=== PATIENT | male | born 1970 | race Caucasian/White ===

== ENCOUNTER 2020-06-28 16:43 | Emergency (ER) | payer OTHER, SELFPAY ==
--- NOTE | ~2020-06-28 | XR_ITS ---
EXAMINATION: XR lumbar spine 2-3V EXAM DATE: 06/28/2020 17:57 INDICATION: Work Injury X3wks Ago,Pain In Low Back To Hips Legs. TECHNIQUE: Lumber spine frontal, lateral, lateral L5-S1 projections for interpretation. There is no prior study for comparison. FINDINGS: There is mild disc disease at L4-5 and L5-S1. There is mild to moderate lumbar facet arthr opathy. The vertebral bodies are aligned in the AP dimension. There are no acute fractures identifi ed. Sacrum, sacroiliac joints, sacral arcuate lines are intact. Paraspinal soft tissue is unremarkabl e. IMPRESSION: No acute findings. Reviewed, dictated and finalized at location A. ERS COMPENSATION COORDINATOR IMPRESSION: No acute findings.
[2020-06-28 16:49] VITALS: BP 148/70; PULSE 100; RESP 18; TEMP 36.8; O2SAT 100
[2020-06-28] MEDS: ONDANSETRON HCL ODT 4 MG TABLET PO (17:55)
[2020-06-28] MEDS: oxyCODONE/ACETAMINOPHEN (*CRX) 5-325 MG TABLET 1 TABLET PO (17:55)
--- NOTE | 2020-06-28 18:05 | ED.BACK ---
HPI - Back Pain/Injury General Chief Complaint: Back Pain/Injury Stated Complaint: back injury Time Seen by Provider: 06/28/20 17:16 Source: patient Mode of arrival: ambulatory Limitations: no limitations History of Present Illness HPI Narrative: This patient is a 49 year old male who presents for evaluation of low back pain. PAtient states he injured his back 3 weeks ago while working. 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 He reports his pain is located intermittently on right and left above his buttock. He states the pain intermittently radiates to his legs. He has been taking tylenol for his pain. He was feeling better but his pain worsen when was in the shower trying to dry off. He denies urinary hesitancy or retention. He denies leg weakness, numbness or tingling. He denies abdominal pain. His pain is worse with movement and lifting his legs. He was evaluated at [facility] today and he was given a dose of toradol. He was referred to ER for an MRI. Related Data Allergies Allergy/AdvReac Type Severity Reaction Status Date / Time No Known Allergies Allergy Verified 06/28/20 17:53 Review of Systems Review of Systems: All systems reviewed & are unremarkable except as noted in HPI and below Gastrointestinal: Gastrointestinal: Denies abdominal pain, Denies diarrhea, Denies nausea and Denies vomiting Genitourinary: Genitourinary: Denies hematuria, Denies oliguria and Denies penile discharge Musculoskeletal: Musculoskeletal: Reports back pain Neurologic: Denies focal weakness, Denies numbness and Denies weakness [facility] Past Medical History Medical History (Updated 06/28/20 @ 18:59 by Niki Salcedo MD) Kidney stone Surgical History Surgical History (Updated 06/28/20 @ 21:21 by Niki Salcedo MD) No pertinent past surgical history Social History Social History (Updated 06/28/20 @ 18:10 by Niki Salcedo MD) Smoking packs per day: 1 Smoking cigarettes per day: 20.0 Smoking status: Current every day smoker Alcohol intake: current Exam Const: General: no acute distress and alert Orientation/consciousness: patient oriented x3 HENMT: Head: normocephalic and atraumatic Eyes: EOM: EOMs intact bilaterally Resp: Effort & Inspection: normal respiratory effort GI: GI Palp: Yes Soft to palpation, No Tenderness to palpation present (GI) and No Guarding due to palpation present (GI) Auscultation: normal bowel sounds Back/Spine/Pelvis: Thoracic/Lumbar Spine: No straight leg raise positive and other (pain with bending and lifting legs. ) Pelvis: no pain with anterior-posterior compression Skin: General skin exam: normal color Rashes: no rashes Neuro: General: patient oriented x3 and moves all extremities Course Reevaluation(s) Reevaluation #1: He reports his pain has improved. I have discussed with patient xray and discharge plan and follow up. He does not have any neurodeficits or signs of cauda equina. Patient was given precautions. I explained MRI is not necessary at this time. Date: 06/28/20 Time: 18:58 Vital Signs Vital signs: Vital Signs Temperature 98.2 F 06/28/20 16:49 Pulse Rate 100 06/28/20 16:49 Respiratory Rate 18 06/28/20 16:49 Blood Pressure 148/70 H 06/28/20 16:49 Pulse Oximetry 100 06/28/20 16:49 Temperature 98.2 F 06/28/20 16:49 Pulse Rate 72 06/28/20 19:15 Respiratory Rate 16 06/28/20 19:15 Blood Pressure 137/68 06/28/20 19:15 Pulse Oximetry 97 06/28/20 19:15 MDM - Back Pain/Injury Imaging Data Radiologist's impression: ITS Impressions Lumbar Spine X-Ray 06/28/20 17:59 IMPRESSION: No acute findings. Discharge Plan Discharge Clinical Impression: Lumbar radiculopathy Patient Disposition: Home, Self-Care Condition: Stable Instructions: Acute Low Back Pain (ED), Lumbar Radiculopathy (ED), Lower Back Exercises (ED) Additional In
[2020-06-28 19:15] VITALS: BP 137/68; PULSE 72; RESP 16; O2SAT 97
== END 2020-06-28 19:15 | disposition home or self-care (01) ==
PROVIDERS: Emergency Provider General Practice; PCP Family Medicine Adolescent Medicine
DX: M54.16 Radiculopathy, lumbar region (principal); Z87.442 Personal history of urinary calculi
CPT/HCPCS: 72100; 99283; A9270

== ENCOUNTER 2020-08-15 14:03 | Emergency (ER) | payer OTHER, SELFPAY ==
--- NOTE | ~2020-08-15 | XR_ITS ---
XR chest 2V DATE: 08/15/2020 16:22 INDICATION: Palpitations, tachycardia TECHNIQUE: PA and lateral views COMPARISON: 01/04/2011 2 view chest FINDINGS: Normal heart size. No hilar or mediastinal enlargement. No pulmonary infiltrate or consol idation, pulmonary vascular congestion or pleural effusion or pneumothorax. IMPRESSION: No active cardiopulmonary disease Reviewed, dictated and finalized at location A. OS LEAD
--- NOTE | 2020-08-15 14:06 | ECG_ITS ---
Measurements Intervals [place] Rate: 124 P: 75 VA: 172 QRS: 83 QRSD: 86 T: 2 QT: 310 QTc: 446 Interpretive Statements SINUS TACHYCARDIA VOLTAGE CRITERIA FOR LVH BORDERLINE ST-T WAVE ABNORMALITY- INFERIOR LEADS ABNORMAL ECG Electronically Signed On 08-15-2020 14:19:10 [facility] [employer] by Derrick Leung D.O.
[2020-08-15 14:07] VITALS: BP 146/93; PULSE 130; RESP 20; TEMP 36.6; O2SAT 100
[2020-08-15 15:45] VITALS: BP 139/90; PULSE 118; RESP 20; O2SAT 100
[2020-08-15 16:17] LABS: Basophils Absolute Auto 0.1 K/mm3 (0.0-0.1); Basophils Percent Auto 1.1 % (0.2-1.2); Eosinophils Absolute Auto 0.1 K/mm3 (0-0.3); Eosinophils Percent Auto 1.7 % (0-4.4); Hematocrit 44.7 % (42.0-52.0); Hemoglobin 15.2 g/dL (14.0-18.0); Immature Granulocyte Absolute 0.01 K/mm3 (0.00-0.031); Immature Granulocyte Percent A 0.1 % (0-0.5); Lymphocytes Absolute Auto 2.01 K/mm3 (0.9-3.2); Lymphocytes Percent Auto 28.4 % (18.3-44.2); Mean Corpuscular Hemoglobin 31.2 pg (26-34); Mean Corpuscular Volume 91.8 fl (80-100); Mean Platelet Volume 8.5 fl (7.4-10.4); Monocytes Absolute Auto 0.6 K/mm3 (0.1-0.6); Neutrophils Absolute Auto 4.2 K/mm3 (1.3-6.7); Neutrophils Percent Auto 59.7 % (45.5-73.1); Platelet Count Result 267 k/mm3 (150-375); Red Blood Count 4.87 M/mm3 (4.6-6.20); Red Cell Distribution Width 13.9 % (11.5-14.5); White Blood Count 7.1 K/mm3 (4.5-10.0)
[2020-08-15 16:35] LABS: Anion Gap 7 mmol/L (8-16); Blood Urea Nitrogen 21 mg/dL (9-20); Calcium 9.7 mg/dL (8.4-10.2); Carbon Dioxide 29 mmol/L (22-30); Chloride 105 mmol/L (98-107); Estimated CRCL calculation 94 ml/min; Estimated Glomerular Filt Rate > 60; Glucose 107 mg/dL (75-110); Sodium 141 mmol/L (137-145)
[2020-08-15 16:52] VITALS: BP 131/96; PULSE 97; RESP 17; O2SAT 99
[2020-08-15 17:19] LABS: Amphetamine Screen Urine Negative (Negative); Barbiturate Screen Urine Negative (Negative); Benzodiazepines Screen Urine Negative (Negative); Cannabinoid Screen Urine Negative (Negative); Cocaine Screen Urine Negative (Negative); Methadone Screen Urine Negative (Negative); Opiate Screen Urine Negative (Negative); Phencyclidine Screen Urine Negative (Negative)
[2020-08-15 17:35] VITALS: PULSE 95; RESP 14; O2SAT 98
--- NOTE | 2020-08-15 18:48 | ED.ARRPALP ---
HPI - Arrhythmia/Palpitations General Chief Complaint: Arrhythmia/Palpitations Stated Complaint: Irregular Heart Rate Time Seen by Provider: 08/15/20 15:33 History of Present Illness HPI narrative: Patient is a 49-year-old male who presents ER with elevated heart rate. He has been going to a an urgent care for Workmen's Comp. related to a back injury. They have been noting that his heart rate has been elevated greater than 120 bpm with regularity on these visits. Patient reports this has been a longstanding issue. Occasionally is working he feels like his heart is racing. He has no chest pain or shortness of breath. No weight loss. Denies that he has been evaluated for this in the past. He does have PCP and he has never discussed it with him. Denies any alcohol withdrawal or abuse of drugs. Related Data Allergies Allergy/AdvReac Type Severity Reaction Status Date / Time No Known Allergies Allergy Verified 06/28/20 17:53 Review of Systems Review of Systems: All systems reviewed & are unremarkable except as noted in HPI and below Constitutional: Constitutional: Denies chills, Denies fever(s) and Denies weakness ENT: Denies nasal congestion and Denies sore throat Cardiovascular: Cardiovascular: Denies chest pain, Reports rapid heart rate and Denies radiating jaw, neck or arm pain Respiratory: Respiratory: Denies cough, Denies dyspnea and Denies wheezing PMFSH Past Medical History Medical History (Updated 08/15/20 @ 19:00 by Roque Boyer MD) Kidney stone Surgical History Surgical History (Updated 06/28/20 @ 21:21 by Niki Salcedo MD) No pertinent past surgical history Social History Social History (Updated 06/28/20 @ 18:10 by Niki Salcedo MD) Smoking packs per day: 1 Smoking cigarettes per day: 20.0 Smoking status: Current every day smoker Alcohol intake: current Gender identity (if verbalized by the patient): Male Exam Narrative: Exam Narrative: GENERAL: Well-appearing, well-nourished, and in no acute distress. HEAD: Normocephalic, atraumatic. CHEST: Clear to auscultation. No respiratory distress. HEART: Regular rate and rhythm. Normal peripheral pulses. EXTREMITIES: Normal range of motion. No edema. SKIN: Warm, dry, no rash. NEURO: Alert and oriented x3. PSYCH: Normal mood and affect. Course Course Emergency Course: Unremarkable labs. Heart rate normalized on its own without fluids. Patient may have component of anxiety when he is in the ER or urgent care. Recommend follow-up with PCP for further evaluation. Vital Signs Vital signs: Vital Signs Temperature 97.8 F 08/15/20 14:07 Pulse Rate 130 H 08/15/20 14:07 Respiratory Rate 20 08/15/20 14:07 Blood Pressure 146/93 H 08/15/20 14:07 Pulse Oximetry 100 08/15/20 14:07 Temperature 97.8 F 08/15/20 14:07 Pulse Rate 98 08/15/20 19:22 Respiratory Rate 21 H 08/15/20 19:22 Blood Pressure 132/86 08/15/20 19:22 Pulse Oximetry 97 08/15/20 19:22 MDM - Arrhythmia/Palpitations Lab Data Result diagrams: 08/15/20 16:09 08/15/20 16:09 Labs: Lab Results 08/15/20 08/15/20 08/15/20 Range/Units 16:09 16:09 16:09 WBC 7.1 (4.5-10.0) K/mm3 RBC 4.87 (4.6-6.20) M/mm3 Hgb 15.2 (14.0-18.0) g/dL Hct 44.7 (42.0-52.0) % MCV 91.8 (80-100) fl MCH 31.2 (26-34) pg MCHC 34.0 (32-36) g/dl RDW 13.9 (11.5-14.5) % Plt Count 267 (150-375) k/mm3 MPV 8.5 (7.4-10.4) fl Immature Gran % (Auto) 0.1 (0-0.5) % Neut % (Auto) 59.7 (45.5-73.1) % Lymph % (Auto) 28.4 (18.3-44.2) % [place] % (Auto) 9.0 H (2.6-8.5) % Eos % (Auto) 1.7 (0-4.4) % Baso % (Auto) 1.1 (0.2-1.2) % Lymph # (Auto) 2.01 (0.9-3.2) K/mm3 [place] # (Auto) 0.6 (0.1-0.6) K/mm3 Eos # (Auto) 0.1 (0-0.3) K/mm3 Baso # (Auto) 0.1 (0.0-0.1) K/mm3 Abs Immat Gran (auto) 0.01 (0.00-0.031) K/mm3 Absolute Neuts (auto) 4.2 (1.3-6.7)
[2020-08-15 19:22] VITALS: BP 132/86; PULSE 98; RESP 21; O2SAT 97
== END 2020-08-15 19:23 | disposition home or self-care (01) ==
PROVIDERS: Emergency Provider Emergency Medicine; PCP Family Medicine Adolescent Medicine
DX: R00.2 Palpitations (principal); R00.0 Tachycardia, unspecified; Z87.442 Personal history of urinary calculi; F17.210 Nicotine dependence, cigarettes, uncomplicated; R94.31 Abnormal electrocardiogram [ECG] [EKG]
CPT/HCPCS: 36415; 71046; 80048; 80307; 83735; 84443; 85025; 93005; 99283

== ENCOUNTER 2023-03-25 07:17 | Emergency (ER) | payer BC, SELFPAY ==
--- NOTE | ~2023-03-25 | XR_ITS ---
EXAMINATION: XR elbow RT min 3V DATE: 03/25/2023 08:07 INDICATION: Right elbow pain. Fall. TECHNIQUE: 4 views of right elbow were obtained. COMPARISON: None. FINDINGS: Bone alignment is normal. No fracture. There is mild elbow joint osteoarthritis. No elbow j oint effusion. IMPRESSION: 1. Mild elbow joint osteoarthritis. Reviewed, dictated and finalized at location E.
--- NOTE | ~2023-03-25 | XR_ITS ---
EXAMINATION: XR wrist RT min 3V DATE: 03/25/2023 08:07 INDICATION: Right wrist pain. TECHNIQUE: 4 views of right wrist were obtained. COMPARISON: None. FINDINGS: Bone alignment is normal. No fracture. There is heterotopic ossification distal to ulnar st yloid. There is mild osteoarthritis of triscaphe joint and first carpometacarpal joint. IMPRESSION: 1. Mild polyarticular osteoarthritis. Reviewed, dictated and finalized at location E.
[2023-03-25 07:24] VITALS: BP 128/86; PULSE 91; RESP 14; TEMP 36.2; O2SAT 99
--- NOTE | 2023-03-25 08:16 | ED.UPPEXIN ---
HPI - Extremity Injury (Upper) General Chief Complaint: Extremity Injury, Upper Stated Complaint: fall sat/arm injury Time Seen by Provider: 03/25/23 07:45 Source: patient and RN notes reviewed Mode of arrival: ambulatory Limitations: no limitations History of Present Illness HPI narrative: This is a 52 year old male right hand dominant who presents for evaluation right arm pain. He states he fell on Saturday night while he was drinking alcohol. He thinks he fell on his right forearm trying to catch himself. He reports mild swelling and pain at distal proximal forearm . He has pain with trying to turn his wrist. He has been taking Tylenol for his pain and he has been treating with ice. MD complaint: injury to: forearm Onset (ago): day(s) Related Data Allergies Allergy/AdvReac Type Severity Reaction Status Date / Time No Known Allergies Allergy Verified 03/25/23 07:21 Review of Systems Review of Systems: All systems reviewed & are unremarkable except as noted in HPI and below PMFSH Past Medical History Medical History (Updated 03/25/23 @ 08:22 by Niki Salcedo MD) Hypertension Kidney stone (2009) Pure hypercholesterolemia, unspecified (12/2022) Surgical History Surgical History No pertinent past surgical history Family History Family History (Updated 12/07/21 @ 10:50 by Iqra Aguilera MA) Mother Lung cancer Father Lung cancer Social History Social History Smoking packs per day: 1 Smoking cigarettes per day: 20.0 Years smoked: 15 Smoking pack-years: 15.00 Smoking status: Current every day smoker Tobacco type: cigarettes Second hand tobacco smoke exposure: Yes Alcohol intake: current Drinks per week: 12 Substance use: never Substance use type: does not use Lack of Transportation: No Lack of Food: Never True Current Housing: I Have Housing Concerned About Future Housing: No Difficulty Paying Gas/Electric Bills: No Difficulty Paying for Meds: No Currently Unemployed: No Education: High School Diploma/GED Difficulty w/ Childcare or Family Care: No Living arrangements: with family Occupation/Education: occupation Gender identity (if verbalized by the patient): Male Sexual Orientation (if Verbalized by the Patient): Straight or Heterosexual Spiritual care concerns: No Agree to blood products: Yes Exam Const: General: no acute distress and alert Nutritional Appearance: well nourished Orientation/consciousness: patient oriented x3 HENMT: Head: normal to inspection Eyes: EOM: EOMs intact bilaterally Resp: Effort & Inspection: normal respiratory effort Cardio: Other: strong right radial pulse, palpable Skin: General skin exam: normal color Rashes: no rashes Wounds: no wounds Neuro: General: patient oriented x3, moves all extremities and CN's II-XI intact bilaterally Extrem: Other: mild ttp and swelling dorsal just distal to right elbow, no deformity, no bruising, no erythema; no TTP or swelling to right wrist or right hand Psych: Mental Status: mental status grossly normal Affect: normal affect Attitude: cooperative Course Reevaluation(s) Reevaluation #1: I Discussed with patient that xray was negative for fracture. Treatment with ice and NSAIDS. Date: 03/25/23 Time: 08:20 Vital Signs Vital signs: Vital Signs Temperature 97.1 F L 03/25/23 07:24 Pulse Rate 91 03/25/23 07:24 Respiratory Rate 14 03/25/23 07:24 Blood Pressure 128/86 03/25/23 07:24 Pulse Oximetry 99 03/25/23 07:24 Temperature 97.1 F L 03/25/23 07:24 Pulse Rate 91 03/25/23 07:24 Respiratory Rate 14 03/25/23 07:24 Blood Pressure 128/86 03/25/23 07:24 Pulse Oximetry 99 03/25/23 07:24 MDM - Extremity Injury (Upper) MDM Narrative Medical decision making narrative: imaging ordered. Ibuprofen ordere
[2023-03-25] MEDS: IBUPROFEN 600 MG TABLET PO (08:23)
== END 2023-03-25 08:55 | disposition home or self-care (01) ==
LOC: ANHED 08:38
PROVIDERS: Emergency Provider General Practice; PCP Family Medicine Adolescent Medicine
DX: S50.11XA Contusion of right forearm, initial encounter (principal); F17.210 Nicotine dependence, cigarettes, uncomplicated; I10 Essential (primary) hypertension; Z87.442 Personal history of urinary calculi; E78.5 Hyperlipidemia, unspecified; W19.XXXA Unspecified fall, initial encounter
CPT/HCPCS: 73080; 73110; 99284; A9270

== ENCOUNTER 2023-06-15 09:03 | Emergency (ER) | payer BC, SELFPAY ==
[2023-06-15 09:15] VITALS: BP 119/87; PULSE 104; RESP 16; TEMP 36.7; O2SAT 97
--- NOTE | 2023-06-15 09:40 | ED.SKABFB ---
HPI - Skin/Abscess/Foreign Bdy General Chief complaint: Skin/Abscess/Foreign Body Stated complaint: Rash Time Seen by Provider: 06/15/23 09:40 Source: patient, RN notes reviewed and old records reviewed Mode of arrival: ambulatory Limitations: no limitations History of Present Illness HPI narrative: 52-year-old male presents to the [facility] with a generalized rash since Saturday, 3 days ago. Patient states that his has changed their body soap to a generic version of with the use to use. Broken this rash. No treatment prior to arrival. Has been taking hot showers to help but is making it worse. Denies any chest pain, shortness of breath. No lip or tongue swelling. Treatments prior to arrival: none Related Data Allergies Allergy/AdvReac Type Severity Reaction Status Date / Time No Known Allergies Allergy Verified 06/15/23 09:42 Review of Systems Review of Systems: All systems reviewed & are unremarkable except as noted in HPI and below Constitutional: Constitutional: Reports no additional constitutional complaints Eyes: Eyes: Reports no additional eye complaints ENT: Reports system reviewed and no additional complaints, except as documented Cardiovascular: Cardiovascular: Reports no additional cardiovascular complaints, Denies chest pain and Denies dyspnea Respiratory: Respiratory: Reports no additional respiratory complaints, Denies chest congestion, Denies cough and Denies dyspnea Gastrointestinal: Gastrointestinal: Reports no additional gastrointestinal complaints, Denies abdominal pain, Denies nausea and Denies vomiting Musculoskeletal: Musculoskeletal: Reports no additional musculoskeletal complaints Integumentary/Breasts: Skin/Breast: Reports as per HPI and Reports rash Neurologic: Reports system reviewed and no additional complaints, except as documented Psychiatric: Psychiatric: Reports no additional psychiatric complaints Allergic/Immunologic: Allergic/Immunologic: Reports no additional allergic/immunologic complaints [facility] Past Medical History Medical History Hypertension Kidney stone (2009) Pure hypercholesterolemia, unspecified (12/2022) Surgical History Surgical History No pertinent past surgical history Family History Family History Mother Lung cancer Father Lung cancer Social History Social History Smoking packs per day: 1 Smoking cigarettes per day: 20.0 Years smoked: 15 Smoking pack-years: 15.00 Smoking status: Current every day smoker Tobacco type: cigarettes Second hand tobacco smoke exposure: Yes Alcohol intake: current Drinks per week: 12 Substance use: never Substance use type: does not use Lack of Transportation: No Lack of Food: Never True Current Housing: I Have Housing Concerned About Future Housing: No Difficulty Paying Gas/Electric Bills: No Difficulty Paying for Meds: No Currently Unemployed: No Education: High School Diploma/GED Difficulty w/ Childcare or Family Care: No Living arrangements: with family Occupation/Education: occupation Gender identity (if verbalized by the patient): Male Sexual Orientation (if Verbalized by the Patient): Straight or Heterosexual Spiritual care concerns: No Agree to blood products: Yes Comments At the time of my signature, I reviewed and agree with the nursing past medical, surgical, social, and family history. There is no relevant family history pertinent to the patient complaint. Exam Const: General: cooperative, healthy appearing, comfortable, no acute distress, well developed, alert and well nourished Nutritional Appearance: well nourished Orientation/consciousness: patient oriented x3 Limitations: no limitations HENMT: Head: normal to inspection
== END 2023-06-15 09:54 | disposition home or self-care (01) ==
PROVIDERS: Emergency Provider Nurse Practitioner; PCP Family Medicine Adolescent Medicine
DX: L23.9 Allergic contact dermatitis, unspecified cause (principal); I10 Essential (primary) hypertension; F17.210 Nicotine dependence, cigarettes, uncomplicated
CPT/HCPCS: 99213; G0463

== ENCOUNTER 2024-04-08 15:15 | Emergency (ER) | payer BC, SELFPAY ==
[2024-04-08] VITALS (11 sets, daily range): BP systolic 124–139; BP diastolic 80–84; PULSE 79–96; RESP 10–20; TEMP 36.6–37.1; O2SAT 97–100
--- NOTE | ~2024-04-08 | CT_ITS ---
CT abdomen pelvis w con Ordering provider: Ike Watts APRN History: 53 years Male with . left flank pain . Comparison: January 26, 2010 Technique: CT abdomen and pelvis with IV and without oral contrast. Automated exposure control and it erative reconstruction technique were employed. The dose-length product was 439.04 mGy-cm. 100 mL Omn ipaque 350 was given IV. Findings: VISUALIZED LOWER CHEST: Normal. UPPER ABDOMINAL ORGANS: Liver: Normal. Gallbladder: Normal. Spleen: Normal. Stomach/duodenum: Normal. Pancreas: Normal. Adrenals: Adenoma is seen in the left adrenal measuring 1.1 cm. No follow-up is advised unless clinic ally warranted. Kidneys: Tiny cysts in the left kidney upper pole. Small cyst in the left kidney lower pole measuring 9 mm. Tiny cyst in the right kidney upper pole. No stones seen.. PELVIC ORGANS: The bladder shows thickened wall. Evaluation for cystitis advised. BOWEL AND MESENTERY: Colon: No evidence of diverticulitis. Normal appendix. Small Bowel: Normal. No obstruction. Peritoneum/mesentery: No free air or free fluid. No mesenteric lymphadenopathy. RETROPERITONEUM: Mild atheromatous disease of the abdominal aorta. No retroperitoneal lymphadenopat hy. Small para-aortic lymph nodes are noted. MUSCULOSKELETAL: Superficial soft tissues: The superficial soft tissues are normal. Bones: Normal spine. IMPRESSION: 1. No evidence of appendicitis, diverticulitis or intestinal obstruction. No renal stones. 2. Small left adrenal adenoma. No follow-up advised unless clinically warranted. 3. Slightly thickened wall of the urinary bladder. Evaluation for cystitis advised. Reviewed, dictated and finalized at location A. IMPRESSION: 1. No evidence of appendicitis, diverticulitis or intestinal obstruction. No r enal stones. 2. Small left adrenal adenoma. No follow-up advised unless clinically warrante d. 3. Slightly thickened wall of the urinary bladder. Evaluation for cystitis adv ised.
--- NOTE | 2024-04-08 15:25 | ED.BACK ---
HPI - Back Pain/Injury General Chief Complaint: Back Pain/Injury <Ike Watts APRN - Last Filed: 04/08/24 15:27> Stated Complaint: back pain <Ike Watts APRN - Last Filed: 04/08/24 15:27> Time Seen by Provider: 04/08/24 17:26 <Ike Watts APRN - Last Filed: 04/08/24 15:27> 53-year-old male presents with sudden onset of left-sided flank pain that started after having a sneeze. Patient states this needs heparin prior to arrival. Patient patient unable to move related to pain. Patient has history of kidney stones. no other complaints GENERAL: Well-appearing, well-nourished, and in no acute distress. HEAD: Normocephalic, atraumatic. EYES: PERRLA and EOMI. ENT: Nares clear, no rhinorrhea or epistaxis. Mucous membranes moist. NECK: Supple. CHEST: Clear to auscultation. No respiratory distress. HEART: Regular rate and rhythm. No murmur heard. Normal peripheral pulses. ABDOMEN: Soft, left cva tenderness EXTREMITIES: Normal range of motion. No edema. SKIN: Warm, dry, no rash. NEURO: No focal deficits. Alert and oriented x3. PSYCH: Normal mood and affect. <Ike Watts APRN - Last Filed: 04/08/24 15:27> History of Present Illness HPI Narrative: Patient reports traumatic injury to left back 2 weeks ago. Had slowly been improving. 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 Sneeze today had sudden onset pain on left side and felt a bulge in his back. No difficulty with urination/ defecation. No lower extremity numbness or weakness. No saddle anesthesia. No Alleviating factors. <Roque Boyer MD - Last Filed: 04/08/24 17:59> Related Data Home Medications: Home Medications Medication Instructions Recorded Confirmed dicyclomine 10 mg capsule 10 mg PO TID 10/07/23 10/07/23 famotidine 20 mg tablet 20 mg PO DAILY PRN 10/07/23 10/07/23 <Ike Watts APRN - Last Filed: 04/08/24 15:27> Allergies/Adverse Reactions: Allergies Allergy/AdvReac Type Severity Reaction Status Date / Time No Known Allergies Allergy Verified 10/07/23 15:26 <Ike Watts APRN - Last Filed: 04/08/24 15:27> Review of Systems Review of Systems: All systems reviewed & are unremarkable except as noted in HPI and below <Roque Boyer MD - Last Filed: 04/08/24 17:59> Constitutional: Constitutional: Reports no additional constitutional complaints <Roque Boyer MD - Last Filed: 04/08/24 17:59> Cardiovascular: Cardiovascular: Reports no additional cardiovascular complaints <Roque Boyer MD - Last Filed: 04/08/24 17:59> Respiratory: Respiratory: Reports no additional respiratory complaints <Roque Boyer MD - Last Filed: 04/08/24 17:59> Musculoskeletal: Musculoskeletal: Reports back pain, Denies arthralgias, Denies joint swelling and Denies muscle cramps <Roque Boyer MD - Last Filed: 04/08/24 17:59> Neurologic: Reports system reviewed and no additional complaints, except as documented <Roque Boyer MD - Last Filed: 04/08/24 17:59> PMFSH Past Medical History Medical History: Medical History Hypertension Kidney stone (2009) Pure hypercholesterolemia, unspecified (12/2022) <Ike Watts APRN - Last Filed: 04/08/24 15:27> Surgical History Surgical History: Surgical History No pertinent past surgical history <Ike Watts APRN - Last Filed: 04/08/24 15:27> Family History Family History: Family History Mother Lung cancer Father Lung cancer <Ike Watts APRN - Last Filed: 04/08/24 15:27> Social History Social History: Social History Smoking packs per day: 1 Smoking cigarettes per day: 20.0 Years smoked: 15 Smoking pack-years: 15.00 Smoking status: Current every day smoker Tobacco t
[2024-04-08] MEDS: KETOROLAC 30 MG/ML VIAL (*BKC) IV PUSH (15:32)
[2024-04-08] MEDS: ONDANSETRON INJ 4 MG/2 ML VIAL IV PUSH (15:33)
[2024-04-08 15:35] LABS: Basophils Absolute Auto 0.1 K/mm3 (0.0-0.1); Basophils Percent Auto 1.2 % (0.2-1.2); Eosinophils Absolute Auto 0.1 K/mm3 (0-0.3); Eosinophils Percent Auto 1.5 % (0-4.4); Hematocrit 50.8 % (42.0-52.0); Immature Granulocyte Absolute 0.03 K/mm3 (0.00-0.031); Immature Granulocyte Percent A 0.5 % (0-0.5); Lymphocytes Absolute Auto 2.25 K/mm3 (0.9-3.2); Lymphocytes Percent Auto 34.2 % (18.3-44.2); Mean Corpuscular HGB Conc 33.5 g/dl (32-36); Mean Corpuscular Hemoglobin 31.9 pg (26-34); Mean Corpuscular Volume 95.3 fl (80-100); Mean Platelet Volume 8.7 fl (7.4-10.4); Monocytes Absolute Auto 0.5 K/mm3 (0.1-0.6); Monocytes Percent Auto 7.9 % (2.6-8.5); Neutrophils Absolute Auto 3.6 K/mm3 (1.3-6.7); Neutrophils Percent Auto 54.7 % (45.5-73.1); Platelet Count Result 292 k/mm3 (150-375); Red Blood Count 5.33 M/mm3 (4.6-6.20); White Blood Count 6.6 K/mm3 (4.5-10.0)
[2024-04-08 16:05] LABS: Alanine Aminotransferase 37 U/L (6-50); Albumin Level 4.9 g/dL (3.5-5.1); Alkaline Phosphatase 81 U/L (38-126); Anion Gap 8 mmol/L (4-12); Aspartate Amino Transferase 48 U/L (17-59); Bilirubin,Total 0.7 mg/dL (0.2-1.3); Blood Urea Nitrogen 23 mg/dL (9-20); Calcium 9.8 mg/dL (8.4-10.2); Carbon Dioxide 28 mmol/L (22-30); Chloride 105 mmol/L (98-107); Estimated Glomerular Filt Rate > 60; Glucose 89 mg/dL (65-110); Potassium 4.9 mmol/L (3.4-5.0); Sodium 141 mmol/L (137-145)
[2024-04-08] MEDS: SODIUM CHLORIDE 0.9% IV 1,000 ML 999 ML IV CONT (17:30)
[2024-04-08] MEDS: diazePAM INJ (*CRX) 10 MG/2 ML SYRINGE 5 MG IV PUSH (17:45)
== END 2024-04-08 18:48 | disposition home or self-care (01) ==
PROVIDERS: Nurse Practitioner Family; Emergency Provider Emergency Medicine; PCP Family Medicine Adolescent Medicine
DX: M62.830 Muscle spasm of back (principal); I10 Essential (primary) hypertension; E78.00 Pure hypercholesterolemia, unspecified; Z87.442 Personal history of urinary calculi; F17.210 Nicotine dependence, cigarettes, uncomplicated; R93.41 Abnormal radiologic findings on diagnostic imaging of renal pelvis, ureter, or bladder
CPT/HCPCS: 36415; 74177; 80053; 85025; 96361; 96374; 96375; 99284; J1885; J2405; J3360; J7030; Q9967

== ENCOUNTER 2024-09-04 11:27 | Emergency (ER) | payer BC, SELFPAY ==
--- NOTE | 2024-09-04 11:28 | ED.EAR ---
HPI - Ear Problem General Chief complaint: Ear Stated complaint: right ear Time Seen by Provider: 09/04/24 11:27 Source: patient Mode of arrival: ambulatory Limitations: no limitations History of Present Illness HPI Narrative: Hernandez is a 53 year old male patient presenting to the clinic today with c/o right ear pain x 1 day. He reports symptoms started last night when is ear pop. He is having pain and pressure in the ear as well as feeling as though he cannot hear. Denies any fevers, chills, body aches. Does have some nasal congestion. Related Data Allergies Allergy/AdvReac Type Severity Reaction Status Date / Time No Known Allergies Allergy Verified 09/04/24 11:38 Review of Systems Review of Systems: Pertinent positives per HPI. Patient denies any fever, chills, rash, headache, visual changes, dizziness, cough, shortness of breath, chest pain, palpitations, nausea, vomiting, diarrhea, constipation, abdominal pain, or any urinary issues. PMFSH Past Medical History Medical History Hypertension Pure hypercholesterolemia, unspecified (12/2022) Kidney stone (2009) Surgical History Surgical History No pertinent past surgical history Family History Family History Mother Lung cancer Father Lung cancer Social History Social History Smoking packs per day: 1 Smoking cigarettes per day: 20.0 Years smoked: 15 Smoking pack-years: 15.00 Smoking status: Current every day smoker Tobacco type: cigarettes Second hand tobacco smoke exposure: Yes Alcohol intake: current Drinks per week: 12 Substance use: never Substance use type: does not use Lack of Transportation: No Lack of Food: Never True Current Housing: I Have Housing Concerned About Future Housing: No Difficulty Paying Gas/Electric Bills: No Difficulty Paying for Meds: No Currently Unemployed: No Education: High School Diploma/GED Difficulty w/ Childcare or Family Care: No Living arrangements: with family Occupation/Education: occupation Gender identity (if verbalized by the patient): Male Sexual Orientation (if Verbalized by the Patient): Straight or Heterosexual Spiritual care concerns: No Agree to blood products: Yes Comments At the time of my signature, I reviewed and agree with the nursing past medical, surgical, social, and family history. There is no relevant family history pertinent to the patient complaint. Exam Narrative: General: Well-developed, well nourished, in no apparent distress Head: Normocephalic, atraumatic Eyes: Pupils equally round and reactive to light bilaterally, EOM intact, sclera and conjunctive clear, no discharge, lids normal Ears: Left TMs intact and clear, right TM intact, bulging, congested, tenderness to palpation over the right eustachian tube, ear canals clear, no drainage, grossly hearing normal. Nose: Nares patent, clear discharge, no inflammation, no sinus tenderness. Mouth: Oral pharynx without lesions or masses, good dentition, MMM. Neck: Supple, trachea midline, no enlargement of anterior or posterior cervical nodes, no thyroid masses or goiter palpable. Cardio: Regular rate and rhythm, s1 and s2 normal, no murmur appreciated. Resp: Clear to auscultation bilaterally, no rhonchi, rales, wheezing or rubs Course Course Emergency Course: Portions of this record may have been created with voice recognition software. Level of Care: Express Care Visit Vital Signs Vital signs: Vital Signs Temperature 36.4 C L 09/04/24 11:36 Pulse Rate 88 09/04/24 11:36 Respiratory Rate 18 09/04/24 11:36 Blood Pressure 143/85 H 09/04/24 11:36 Pulse Oximetry 98 09/04/24 11:36 Oxygen Delivery Room Air 09/04/24 11:36 Temperature 36.4 C L 09/04/24 11:36 Pulse Rate 88 09/04/24 11:36 Respiratory Rate 18 09/04/24 11:36 Blood Pressure 143/85 H 09/04/24 11:36 Pulse Oximetry 98 09/04/24 11:36 Oxygen Delivery Room Air 09/04/24 11:36 Vital signs reviewed Medical Decision Making MDM Narrative Medical decision making narrative: At the time of visit patient is resting comfortably on the exam table. Patient appears to be nontoxic. Plan: I suspect patient has a right eustachian tube dysfunction. Prescription for prednisone was sent to the pharmacy. Supportive measures were discussed with the patient and they voiced understanding discharge instructions and agrees to treatment plan. Return precautions reviewed Differential Diagnosis Differential Diagnosis: Otitis Media, otitis externa, eustachian tube dysfunction, cerumen impaction, upper respiratory infection, serous otitis Vital Signs Vital Signs: Vital Signs Temperature 36.4 C L 09/04/24 11:36 Pulse Rate 88 09/04/24 11:36 Respiratory Rate 18 09/04/24 11:36 Blood Pressure 143/85 H 09/04/24 11:36 Pulse Oximetry 98 09/04/24 11:36 Oxygen Delivery Room Air 09/04/24 11:36 Temperature 36.4 C L 09/04/24 11:36 Pulse Rate 88 09/04/24 11:36 Respiratory Rate 18 09/04/24 11:36 Blood Pressure 143/85 H 09/04/24 11:36 Pulse Oximetry 98 09/04/24 11:36 Oxygen Delivery Room Air 09/04/24 11:36 Discharge Plan Discharge Clinical Impression: Eustachian tube dysfunction Qualifiers: Laterality: right Qualified Code(s): H69.91 - Unspecified Eustachian tube disorder, right ear Patient Disposition: Home, Self-Care Condition: Stable Instructions: Antibiotic Form, Earache (ED) Additional Instructions: Take prescription medications only as prescribed-prednisone Increase fluids and stay well hydrated Tylenol/motrin for pain/fever Flonase and OTC antihistamines as directed Go to the ED if you develop a worsening in your condition- high fever not controlled by Tylenol or Motrin, dehydration, weakness, lethargy, shortness of breath, or chest pain. Follow up with your PCP in 3-5 days if symptoms persist. Patient Language: Bulgarian Prescriptions: New prednisone 20 mg tablet 40 mg PO DAILY 5 Days Qty: 10 0RF No Action albuterol sulfate 90 mcg/actuation HFA aerosol inhaler 2 inh inhalation Q4H PRN (Reason: shortness of breath or wheezing) Qty: 6.7 0RF famotidine 20 mg tablet 20 mg PO DAILY PRN (Reason: acid reflux) Qty: 30 0RF cyclobenzaprine 10 mg tablet 10 mg PO TID PRN (Reason: muscle spasm) Qty: 20 0RF naproxen 375 mg tablet 375 mg PO BID Qty: 14 0RF metoprolol succinate 25 mg tablet extended release 24 hr See Rx Instructions .ROUTE .COMPLEX Qty: 90 2RF Dose Instruction: TAKE 1 TABLET DAILY Rx Instructions: TAKE 1 TABLET DAILY Follow-up/Referrals: Andrew Arnold MD [Primary Care Provider] - Time of Disposition: 11:43 Quality NIHSS Nursing Documentation ED NIHSS nursing documentation: reviewed/agree
[2024-09-04 11:36] VITALS: BP 143/85; PULSE 88; RESP 18; TEMP 36.4; O2SAT 98
== END 2024-09-04 11:58 | disposition home or self-care (01) ==
PROVIDERS: Emergency Provider Nurse Practitioner Family; PCP Family Medicine Adolescent Medicine
DX: H69.91 Unspecified Eustachian tube disorder, right ear (principal); F17.210 Nicotine dependence, cigarettes, uncomplicated; I10 Essential (primary) hypertension; E78.00 Pure hypercholesterolemia, unspecified
CPT/HCPCS: 99213; G0463